=== PATIENT | female | born 1955 | race Caucasian/White ===

== ENCOUNTER 2016-09-17 11:00 | Outpatient (CLI) | payer OTHER ==
--- NOTE | 2016-09-18 17:03 | Mammography Report ---
DIGITAL SCREENING MAMMOGRAM: 09/17/2016 CLINICAL INDICATION: A 61-year-old, for screening. COMPARISON: 06/2015, 06/2014, 06/2013, 02/2011, 11/2009, 01/2007. TECHNIQUE: Routine CC and MLO projections were obtained of the breasts. Bilateral laterally exaggera natalee craniocaudal views. FINDINGS: Parenchymal tissue within both breasts is heterogeneously dense, which may lower the sensi tivity of mammography; however, there are no dominant masses, suspicious microcalcifications, or seco ndary signs of malignancy. In comparison to the previous studies, there are no significant changes. ASSESSMENT: NO MAMMOGRAPHIC EVIDENCE OF MALIGNANCY. NO SIGNIFICANT INTERVAL CHANGES. RECOMMENDATION: Screening mammography is recommended annually. BIRADS category 1 - negative. STANDARD QUALIFYING STATEMENTS 1. This examination was reviewed with the aid of Computed-Aided Detection (CAD). 2. A negative or benign imaging report should not delay biopsy if clinically suspicious findings are present. Consider surgical consultation if warranted. More than 5% of cancers are not identified by i maging. 3. Dense breasts may obscure an underlying neoplasm. JOB #: [id number] EXT JOB #:[id number]
== END 2016-09-17 11:01 | disposition home or self-care (01) ==
LOC: DI.S 11:00
PROVIDERS: ATTEND Nurse Practitioner Family
DX: Z12.31 Encounter for screening mammogram for malignant neoplasm of breast (principal)
CPT/HCPCS: 77067

== ENCOUNTER 2017-11-24 16:21 | Outpatient (CLI) | payer OTHER ==
--- NOTE | 2017-12-08 11:33 | Mammography Report ---
Procedure Date: 11/24/2017 Accession Number: [id number] / [id number] Procedure: MGN - Screening Mammo Dig Bilat CPT Code: FULL RESULT: EXAM: Screening Mammo Dig Bilat DATE: 11/24/2017 4:38 PM CLINICAL HISTORY: 62 year-old nulliparous female with family history of breast cancer in the mother at age 75. TECHNIQUE: Bilateral CC and MLO views were obtained. COMPARISON: 09/17/2016, 06/13/2015, 06/27/2014, 06/29/2013. FINDINGS: The breasts demonstrate heterogeneously dense fibroglandular parenchyma bilaterally. No suspicious masses, clustered microcalcifications, or regions of architectural distortion are identified. IMPRESSION: Negative examination RECOMMENDATION: Routine annual screening unless otherwise clinically indicated. BIRADS CATEGORY 1: Negative STANDARD QUALIFYING STATEMENTS: 1. This examination was reviewed with the aid of Computer-Aided Detection (CAD). 2. A negative or benign imaging report should not delay biopsy if clinically suspicious findings are present. Consider surgical consultation if warrented. More than 5% of cancers are not identified by imaging. 3. Dense breasts may obscure an underlying neoplasm.
== END 2017-11-24 16:22 | disposition home or self-care (01) ==
LOC: DI.N 16:21
PROVIDERS: ATTEND Nurse Practitioner Family
DX: Z12.31 Encounter for screening mammogram for malignant neoplasm of breast (principal); Z80.3 Family history of malignant neoplasm of breast
CPT/HCPCS: 77067

== ENCOUNTER 2018-12-23 09:02 | Outpatient (CLI) | payer OTHER ==
[2018-12-23 16:59] LABS: BASOPHILS % (AUTO) 0.7 %; EOSINOPHILS # (AUTO) 0.1 10^3/uL (0.0-0.7); HGB - HEMOGLOBIN 13.9 g/dL (12.0-16.0); LYMPHOCYTES % (AUTO) 36.2 %; MEAN CORPUSCULAR HGB CONC 31.5 g/dL (32.0-36.0); MEAN CORPUSCULAR VOLUME 91.9 fL (81.0-99.0); MEAN PLATELET VOLUME 10.8 fL (7.9-10.8); MONOCYTES # (AUTO) 0.4 10^3/uL (0.0-1.0); MONOCYTES % (AUTO) 8.1 %; NEUTROPHILS # (AUTO) 2.9 10^3/uL (1.5-6.6); NEUTROPHILS % (AUTO) 52.8 %; PLT - PLATELET COUNT 226 10^3/uL (130-450); RED CELL DISTRIBUTION WIDTH 12.4 % (12.0-15.0); WHITE BLOOD COUNT 5.4 x10^3/uL (4.8-10.8)
[2018-12-23 17:23] LABS: ALBUMIN 4.2 g/dL (3.2-5.5); ALBUMIN/GLOBULIN RATIO 1.4 (1.0-2.2); ALKALINE PHOSPHATASE 62 IU/L (42-121); ALT ALANINE AMINOTRANSFERASE 23 IU/L (10-60); AST ASPARTATE AMINOTRANSFERASE 26 IU/L (10-42); BILIRUBIN,TOTAL 0.6 mg/dL (0.2-1.0); BUN - BLOOD UREA NITROGEN 13 mg/dL (6-20); CALCIUM 9.4 mg/dL (8.5-10.3); CARBON DIOXIDE - CO2 27 mmol/L (21-32); CHLORIDE 105 mmol/L (101-111); CHOL/HDL RATIO 4.1 (<4.4); CHOLESTEROL 331 mg/dL; CREATININE 0.6 mg/dL (0.4-1.0); GFR - MDRD 101 (>89); GLUCOSE 86 mg/dL (70-100); HDL CHOLESTEROL 80 mg/dL; LDL CHOLESTEROL,CALCULATED 229 mg/dL; LDL CHOLESTEROL,DIRECT 240 mg/dL; LDL/HDL RATIO 2.9 (<4.4); SODIUM 140 mmol/L (135-145); T4 (THYROXINE) 7.77 ug/dL (6.09-12.23); TOTAL PROTEIN 7.2 g/dL (6.7-8.2); VLDL CHOLESTEROL 22 mg/dL
[2018-12-23 17:26] LABS: THYROID STIMULATING HORMONE 1.22 uIU/mL (0.34-5.60)
== END 2018-12-23 09:03 | disposition home or self-care (01) ==
LOC: LAB.S 09:02
PROVIDERS: ATTEND Nurse Practitioner Family
DX: Z00.01 Encounter for general adult medical examination with abnormal findings (principal); F32.9 Major depressive disorder, single episode, unspecified; E55.9 Vitamin D deficiency, unspecified; Z79.890 Hormone replacement therapy
CPT/HCPCS: 36415; 80053; 80061; 82306; 83721; 84436; 84443; 84481; 85025; 85384

== ENCOUNTER 2019-01-06 16:35 | Outpatient (CLI) | payer OTHER ==
--- NOTE | 2019-01-09 16:18 | Ultrasound Report ---
Reason: HYPERLIPIDEMIA, UNSPECIFIED Procedure Date: 01/06/2019 Accession Number: [id number] / [id number] Procedure: US - Carotid Doppler Complete CPT Code: FULL RESULT: EXAM: BILATERAL CAROTID AND VERTEBRAL ARTERY DUPLEX DOPPLER ULTRASOUND. EXAM DATE: 01/06/2019 05:37 PM. CLINICAL HISTORY: Hyperlipidemia, unspecified. COMPARISON: None. TECHNIQUE: Grayscale imaging, color Doppler, and duplex spectral Doppler were used to evaluate the carotid and vertebral arteries bilaterally. Static images were obtained. FINDINGS: Mild nonocclusive atherosclerotic plaque is identified in the left distal common and proximal internal carotid artery. No arthroscopic plaque in right system. Normal antegrade flow is present in bilateral vertebral arteries. VELOCITIES (cm/sec): Right CCA mid: PSV 79 cm/sec CCA dist: PSV 80 cm/sec ICA prox: PSV 78 cm/sec, EDV 13 cm/sec ICA mid: PSV 84 cm/sec, EDV 19 cm/sec ICA dist: PSV 56 cm/sec, EDV 14 cm/sec ECA: PSV 67 cm/sec Vert: PSV 65 cm/sec ICA/CCA: 1.0 Left CCA mid: PSV 97 cm/sec CCA dist: PSV 89 cm/sec ICA prox: PSV 66 cm/sec, EDV 14 cm/sec ICA mid: PSV 63 cm/sec, EDV 17 cm/sec ICA dist: PSV 60 cm/sec, EDV 13 cm/sec ECA: PSV 105 cm/sec Vert: PSV 67 cm/sec ICA/CCA: 0.68 ICA diameter stenosis: Right: <50% by velocity and <70% by NASCET criteria. Left: <50% by velocity and <70% by NASCET criteria. IMPRESSION: 1. Mild nonocclusive atherosclerotic plaque is identified in the left distal common and proximal internal carotid artery. No plaque in right system. 2. In the right carotid artery there are no elevated carotid artery velocities to suggest hemodynamically significant stenosis. 3. In the left carotid artery there are no elevated carotid artery velocities to suggest hemodynamically significant stenosis. 4. Normal antegrade flow is present in bilateral vertebral arteries. General Recommendations: Stenosis =50% ICA - Follow-up ultrasound 6-12 months Stenosis <50% ICA - High Risk Patient with plaque - Follow-up ultrasound 1-2 years Normal Study but High Risk Patient - Follow-up ultrasound 3-5 years Management recommendations and diagnostic criteria are based on current IAC endorsed standards in Carotid Artery Stenosis: Grayscale and Doppler Ultrasound Diagnosis. Validated velocity measurements with angiographic measurements and velocity criteria are extrapolated from diameter data as defined by the Society of Radiologists in Ultrasound Consensus Conference Radiology 2003; 229;340-346. RADIA
== END 2019-01-06 16:36 | disposition home or self-care (01) ==
LOC: DI 16:35
PROVIDERS: ATTEND Nurse Practitioner Family
DX: I65.22 Occlusion and stenosis of left carotid artery (principal)
CPT/HCPCS: 93880

== ENCOUNTER 2020-05-07 12:22 | Outpatient (CLI) | payer MEDICARE, OTHER ==
[2020-05-07 15:39] LABS: BASOPHILS % (AUTO) 0.6 %; EOSINOPHILS # (AUTO) 0.1 10^3/uL (0.0-0.7); EOSINOPHILS % (AUTO) 1.3 %; LYMPHOCYTES # (AUTO) 2.1 10^3/uL (1.5-3.5); LYMPHOCYTES % (AUTO) 37.8 %; MEAN CORPUSCULAR HEMOGLOBIN 29.6 pg (27.0-31.0); MEAN CORPUSCULAR HGB CONC 32.7 g/dL (32.0-36.0); MEAN CORPUSCULAR VOLUME 90.4 fL (81.0-99.0); MEAN PLATELET VOLUME 9.8 fL (7.9-10.8); MONOCYTES # (AUTO) 0.4 10^3/uL (0.0-1.0); MONOCYTES % (AUTO) 7.5 %; NEUTROPHILS # (AUTO) 2.9 10^3/uL (1.5-6.6); NEUTROPHILS % (AUTO) 52.6 %; PLT - PLATELET COUNT 254 10^3/uL (130-450); RED BLOOD COUNT 4.39 10^6/uL (4.20-5.40); RED CELL DISTRIBUTION WIDTH 12.2 % (12.0-15.0); WHITE BLOOD COUNT 5.5 x10^3/uL (4.8-10.8)
[2020-05-07 15:49] LABS: BILIRUBIN,URINE NEGATIVE (NEGATIVE); GLUCOSE, URINE (UA) NEGATIVE (NEGATIVE); KETONES,URINE (UA) NEGATIVE (NEGATIVE); LEUKOCYTE ESTERASE, URINE NEGATIVE (NEGATIVE); NITRITE,URINE NEGATIVE (NEGATIVE); OCCULT BLOOD,URINE TRACE-INTA (NEGATIVE); PH,URINE 6.5 PH (5.0-7.5); PROTEIN,URINE NEGATIVE (NEGATIVE); UROBILINOGEN,URINE 0.2 (NORMAL) E.U./dL (NORMAL)
[2020-05-07 16:07] LABS: CLARITY,URINE CLEAR (CLEAR)
[2020-05-07 16:16] LABS: ALBUMIN 4.1 g/dL (3.2-5.5); ALBUMIN/GLOBULIN RATIO 1.4 (1.0-2.2); BILIRUBIN,TOTAL 0.8 mg/dL (0.2-1.0); CALCIUM 9.4 mg/dL (8.5-10.3); CREATININE 0.6 mg/dL (0.4-1.0)
== END 2020-05-07 12:23 | disposition home or self-care (01) ==
LOC: LAB.S 12:22
PROVIDERS: ATTEND Nurse Practitioner Family
DX: R31.9 Hematuria, unspecified (principal); E55.9 Vitamin D deficiency, unspecified; Z79.899 Other long term (current) drug therapy
CPT/HCPCS: 36415; 80053; 81001; 81003; 82306; 85025; 87086

== ENCOUNTER 2020-08-06 07:56 | Day surgery (SDC) | payer MEDICARE, OTHER ==
[2020-08-06] MEDS ORDERED: LACTATED RINGERS 1,000 ML IV ONE (08:58)
[2020-08-06] MEDS ORDERED: MIDAZOLAM 2 MG/2 ML VIAL ONE ×2 (09:20→09:22)
[2020-08-06] MEDS ORDERED: fentaNYL 250 MCG/5 ML VIAL ONE (09:20)
[2020-08-06] MEDS ORDERED: LACTATED RINGERS 500 ML IV ONE (10:00)
[2020-08-06 10:34] VITALS: BP 127/77
== END 2020-08-06 07:57 | disposition home or self-care (01) ==
LOC: SDS 07:56
PROVIDERS: ATTEND Internal Medicine Gastroenterology
PROC: 0DBN8ZZ Excision of Sigmoid Colon, Via Natural or Artificial Opening Endoscopic (ICD-10-PCS; 2020-08-06)
PROC: 0DBN8ZZ Excision of Sigmoid Colon, Via Natural or Artificial Opening Endoscopic (ICD-10-PCS; principal; 2020-08-06 09:00)
DX: Z12.11 Encounter for screening for malignant neoplasm of colon (principal); K63.5 Polyp of colon; K57.30 Diverticulosis of large intestine without perforation or abscess without bleeding; I10 Essential (primary) hypertension; Z87.891 Personal history of nicotine dependence
CPT/HCPCS: 45380; 45385; J3010; J7120

== ENCOUNTER 2020-08-12 13:27 | Outpatient (CLI) | payer MEDICARE, OTHER ==
--- NOTE | 2020-08-14 12:25 | Mammography Report ---
BILATERAL DIGITAL SCREENING MAMMOGRAM 3D/2D WITH EXAGGERATED CC: 08/12/2020 CLINICAL: Family history of breast cancer. Family history of breast cancer. Comparison is made to exams dated: 11/24/2017 mammogram, 09/17/2016 mammogram, and 06/27/2014 mammogram - [facility]. There are scattered fibroglandular elements in both breasts. No significant masses, calcifications, or other findings are seen in either breast. There has been no significant interval change. IMPRESSION: NEGATIVE There is no mammographic evidence of malignancy. A 1 year screening mammogram is recommended. This exam was interpreted at Station ID: [id number]. NOTE: For mammograms, a report in lay terms will be sent to the patient. Approximately 15% of breast malignancies will not be visualized mammographically. In the management of a palpable breast mass, a negative mammogram must not discourage biopsy of a clinically suspicious lesion. Electronically Signed By: Pb Garcia M.D. ar/penrad:08/13/2020 09:41:35 ACR BI-RADS Category 1: Negative 3341F PARENCHYMAL PATTERN: (A) - The breast(s) demonstrate(s) scattered fibroglandular densities. BI-RADS CATEGORY: (1) - 1 RECOMMENDATION: (ANNUAL) - Recommend routine annual screening mammography. [id number] 1 year screening LATERALITY: (B)
== END 2020-08-12 13:28 | disposition home or self-care (01) ==
LOC: DI.S 13:27
PROVIDERS: ATTEND Nurse Practitioner Family
DX: Z12.31 Encounter for screening mammogram for malignant neoplasm of breast (principal); Z80.3 Family history of malignant neoplasm of breast

== ENCOUNTER 2020-11-23 08:00 | Outpatient (CLI) | payer MEDICARE, OTHER ==
[2020-11-23 15:10] LABS: ALBUMIN 4.4 g/dL (3.2-5.5); ALBUMIN/GLOBULIN RATIO 1.7 (1.0-2.2); ALKALINE PHOSPHATASE 60 IU/L (42-121); ALT ALANINE AMINOTRANSFERASE 32 IU/L (10-60); AST ASPARTATE AMINOTRANSFERASE 32 IU/L (10-42); BUN - BLOOD UREA NITROGEN 12 mg/dL (6-20); CALCIUM 9.5 mg/dL (8.5-10.3); CARBON DIOXIDE - CO2 25 mmol/L (21-32); CHLORIDE 103 mmol/L (101-111); CHOL/HDL RATIO 2.1 (<4.4); CHOLESTEROL 206 mg/dL; CREATININE 0.7 mg/dL (0.4-1.0); GFR - MDRD 84 (>89); GLUCOSE 98 mg/dL (70-100); HDL CHOLESTEROL 97 mg/dL; LDL CHOLESTEROL,CALCULATED 97 mg/dL; POTASSIUM 3.8 mmol/L (3.5-5.0); SODIUM 139 mmol/L (135-145); TRIGLYCERIDES 59 mg/dL; VLDL CHOLESTEROL 12 mg/dL
== END 2020-11-23 08:01 | disposition home or self-care (01) ==
LOC: LAB.S 08:00
PROVIDERS: ATTEND Nurse Practitioner Family
DX: E78.5 Hyperlipidemia, unspecified (principal)
CPT/HCPCS: 36415; 80053; 80061; 83721

== ENCOUNTER 2021-06-18 16:45 | Emergency (ER) | payer MEDICARE, OTHER ==
[2021-06-18 17:09] VITALS: BP 160/52
[2021-06-18] MEDS ORDERED: TETANUS/DIPHTHERIA/PERTUSSIS 0.5 ML SYRINGE IM ONE (17:40)
--- NOTE | 2021-06-18 17:41 | ED Physician Documentation ---
PD HPI HEAD INJURY - Stated complaint Stated Complaint: GLF, ARM INJURY - Chief complaint Chief Complaint: Trauma Hd/Nk - History obtained from History obtained from: Patient - Additional information Additional information: 66-year-old woman was knocked over by a dog at about 2 PM and fell onto gravel. She has a scrape on her right arm and hit the back of her head. She was seen at urgent care where during wound care some blood from her got into one of the healthcare worker's eyes and they requested source testing which the patient is agreeable on. There was no loss of consciousness. Denies headache. Review of Systems Constitutional: reports: Reviewed and negative Eyes: reports: Reviewed and negative Ears: reports: Reviewed and negative Nose: reports: Reviewed and negative PD PAST MEDICAL HISTORY - Past Medical History Cardiovascular: Hypertension, High cholesterol Respiratory: None Endocrine/Autoimmune: None GI: Hemorrhoids : None HEENT: Chronic vision loss Psych: Depression Musculoskeletal: None Derm: Psoriasis - Past Surgical History Ortho: Other /[employer]STRUCTOR: Dilation and currettage, Other - Present Medications Home Medications: Ambulatory Orders Medication Instructions Recorded Confirmed Escitalopram [Lexapro] 10 mg PO DAILY 08/03/20 08/06/20 amLODIPine [Norvasc] 5 mg PO DAILY 08/03/20 08/06/20 lisinopriL [Lisinopril] 30 mg PO DAILY 08/03/20 08/06/20 - Allergies Allergies/Adverse Reactions: Allergies Allergy/AdvReac Type Severity Reaction Status Date / Time No Known Drug Allergies Allergy Verified 06/18/21 17:09 PD ED PE NORMAL - Vitals Vital signs reviewed: Yes - General General: Alert and oriented X 3, No acute distress - HEENT HEENT: PERRL, EOMI - Neck Neck: Supple, no meningeal sign, No bony TTP - Extremities Extremities: Other (There is a gouge over the right proximal ulna without underl saurav tenderness or limited range of motion. Full range of motion at the elbow.) - Neuro Neuro: Alert and oriented X 3, Normal speech Results - Vitals Vitals: Vital Signs - 24 hr 06/18/21 17:03 Temperature 36.6 C Heart Rate 60 Respiratory 16 Rate Blood Pressure 160/52 H O2 Saturation 99 Oxygen O2 Source Room air - Labs Labs: Laboratory Tests 06/18/21 18:00 HIV 1&2 Antibody Rapid NEGATIVE PD MEDICAL DECISION MAKING - ED course ED course: Patient agreeable to source testing for viral blood-borne illnesses which is done, and employee health notified of the drop by patient protected email. CT imaging of the head was negative. We discussed wound care for the elbow. Departure - Departure Disposition: 01 Home, Self Care Clinical Impression: Injury of head and neck Qualifiers: Encounter type: initial encounter Qualified Code(s): S09.90XA - Unspecified injury of head, initial encounter Elbow abrasion Qualifiers: Encounter type: initial encounter Laterality: right Qualified Code(s): S50.311A - Abrasion of right elbow, initial encounter Condition: Good Record reviewed to determine appropriate education?: Yes Instructions: ED Head Injury Closed Comments: For the elbow, you can wash briefly with soap and water and then keep it covered with a dressing and bacitracin ointment which is available [id number]. You will likely have to do this for a week or 2 until it is completely healed. Your head CT is without significant injuries, return for new or worsening symptoms. Discharge Date/Time: 06/18/21 18:14
--- NOTE | 2021-06-18 17:54 | CT Report ---
PROCEDURE: HEAD WO INDICATIONS: fall, head injury TECHNIQUE: Noncontrast 4.5 mm thick angled axial sections acquired from the foramen magnum to the vertex. For r adiation dose reduction, the following was used: automated exposure control, adjustment of mA and/or kV according to patient size. COMPARISON: None. FINDINGS: Image quality: Excellent. CSF spaces: Basal cisterns are patent. No extra-axial fluid collections. Ventricles are normal in size and shape. Brain: No midline shift. No intracranial masses or hemorrhage. Jones-white matter interface is norm al. Skull and face: Small right parietal scalp hematoma. Calvarium and visualized facial bones are intact , without suspicious lesions. Sinuses: Visualized sinuses and mastoids are clear. IMPRESSION: Small right parietal scalp hematoma. No skull fracture. No acute intracranial hemorrhage or mass effect. Reviewed by: Pb Garcia MD on 06/18/2021 5:53 PM PST Approved by: Pb Garcia MD on 06/18/2021 5:53 PM PST Station ID: [id number]
[2021-06-18 18:36] LABS: HIV RAPID SCREEN NEGATIVE (NEGATIVE)
[2021-06-19 10:21] LABS: HEPATITIS B SURFACE ANTIGEN NON-REACTIVE (NON-REACTIVE); HEPATITIS C ANTIBODY NON-REACTIVE (NON-REACTIVE)
[2021-06-19 13:32] LABS: HIV AG/AB 4TH GEN NON-REACTIVE (NON-REACTIVE)
== END 2021-06-18 18:14 | disposition home or self-care (01) ==
LOC: ED 16:45
DX: S09.90XA Unspecified injury of head, initial encounter (principal); S50.311A Abrasion of right elbow, initial encounter; W03.XXXA Other fall on same level due to collision with another person, initial encounter; I10 Essential (primary) hypertension; Z13.0 Encounter for screening for diseases of the blood and blood-forming organs and certain disorders involving the immune mechanism; Z23 Encounter for immunization; Z71.85 Encounter for immunization safety counseling
CPT/HCPCS: 36415; 70450; 86803; 87340; 90471; 90715; 99282; 99284; G0475; 80074; 86703; 87389

== ENCOUNTER 2021-10-01 08:07 | Outpatient (CLI) | payer MEDICARE, OTHER ==
[2021-10-01 14:13] LABS: BASOPHILS % (AUTO) 0.6 %; EOSINOPHILS # (AUTO) 0.1 10^3/uL (0.0-0.7); EOSINOPHILS % (AUTO) 2.1 %; HCT - HEMATOCRIT 42.1 % (37.0-47.0); HGB - HEMOGLOBIN 13.3 g/dL (12.0-16.0); LYMPHOCYTES # (AUTO) 1.7 10^3/uL (1.5-3.5); LYMPHOCYTES % (AUTO) 33.1 %; MEAN CORPUSCULAR HEMOGLOBIN 29.8 pg (27.0-31.0); MEAN CORPUSCULAR HGB CONC 31.6 g/dL (32.0-36.0); MEAN CORPUSCULAR VOLUME 94.2 fL (81.0-99.0); MEAN PLATELET VOLUME 10.4 fL (7.9-10.8); MONOCYTES # (AUTO) 0.5 10^3/uL (0.0-1.0); MONOCYTES % (AUTO) 9.2 %; NEUTROPHILS # (AUTO) 2.8 10^3/uL (1.5-6.6); NEUTROPHILS % (AUTO) 54.8 %; PLT - PLATELET COUNT 242 10^3/uL (130-450); RED BLOOD COUNT 4.47 10^6/uL (4.20-5.40); RED CELL DISTRIBUTION WIDTH 12.5 % (12.0-15.0); WHITE BLOOD COUNT 5.1 x10^3/uL (4.8-10.8)
[2021-10-01 14:47] LABS: ALBUMIN 4.3 g/dL (3.2-5.5); ALBUMIN/GLOBULIN RATIO 1.5 (1.0-2.2); ALKALINE PHOSPHATASE 57 IU/L (42-121); ALT ALANINE AMINOTRANSFERASE 29 IU/L (10-60); AST ASPARTATE AMINOTRANSFERASE 29 IU/L (10-42); BILIRUBIN,TOTAL 0.8 mg/dL (0.2-1.0); BUN - BLOOD UREA NITROGEN 19 mg/dL (6-20); CALCIUM 9.4 mg/dL (8.5-10.3); CARBON DIOXIDE - CO2 28 mmol/L (21-32); CHLORIDE 103 mmol/L (101-111); CHOL/HDL RATIO 1.8 (<4.4); CHOLESTEROL 187 mg/dL; CREATININE 0.7 mg/dL (0.4-1.0); GFR - MDRD 83 (>89); GLUCOSE 93 mg/dL (70-100); HDL CHOLESTEROL 105 mg/dL; POTASSIUM 3.8 mmol/L (3.5-5.0); SODIUM 139 mmol/L (135-145); TOTAL PROTEIN 7.2 g/dL (6.7-8.2); TRIGLYCERIDES 38 mg/dL
[2021-10-01 14:49] LABS: THYROID STIMULATING HORMONE 1.03 uIU/mL (0.34-5.60)
== END 2021-10-01 08:08 | disposition home or self-care (01) ==
LOC: LAB.S 08:07
PROVIDERS: ATTEND Nurse Practitioner Family
DX: E78.5 Hyperlipidemia, unspecified (principal); I10 Essential (primary) hypertension
CPT/HCPCS: 36415; 80053; 80061; 83721; 84443; 85025

== ENCOUNTER 2022-04-11 09:33 | Outpatient (CLI) | payer MEDICARE, OTHER | END 2022-04-11 09:34 | disposition home or self-care (01) | LOC: LAB.S 09:33 | PROVIDERS: ATTEND Physical Medicine & Rehabilitation Hospice and Palliative Medicine | DX: F41.9 Anxiety disorder, unspecified (principal); R09.89 Other specified symptoms and signs involving the circulatory and respiratory systems; F32.A Depression, unspecified; F40.01 Agoraphobia with panic disorder; G47.00 Insomnia, unspecified; R20.8 Other disturbances of skin sensation; R63.4 Abnormal weight loss; R23.2 Flushing | CPT/HCPCS: 36415; 81599; 82306; 82533; 82728; 82747; 83090; 83498; 83540; 83735; 84207; 84466; 85014; 85025; 85651; 86140; 86376; 86800 ==

== ENCOUNTER 2022-06-09 12:38 | Outpatient (CLI) | payer MEDICARE, OTHER ==
--- NOTE | 2022-06-09 18:02 | Ultrasound Report ---
PROCEDURE: Head or Neck Soft Tissue INDICATIONS: THYROID NODULE TECHNIQUE: Real-time scanning was performed of the thyroid gland, with image documentation. COMPARISON: None FINDINGS: Right: Thyroid lobe measures 5.1 x 1.6 x 1.7 cm, and contains multiple nodules Left: Thyroid lobe measures Size cm, and contains multiple nodules Isthmus: 2 mm thick. Only the 3 largest nodules are measured. The other nodules are all tiny. Nodule number: 1 Location: Lateral right middle pole Size: 0.9 x 0.5 x 0.9 cm. Composition: Solid Echogenicity: Markedly hypoechoic Shape: Wider than tall. Margins: Smooth Echogenic foci: Punctate Total points: 7 ACR TI-RADS category: Highly suspicious Nodule number: 2 Location: Right middle pole/lower pole Size: 0.9 x 0.6 x 0.8 cm. Composition: Cystic Echogenicity: Anechoic Shape: wider than tall. Margins: Smooth Echogenic foci: Peripheral calcifications Total points: 1 ACR TI-RADS category: Benign Nodule number: 3 Location: Lateral left upper pole Size: 0.4 x 0.6 x 0.4 cm. Composition: Solid Echogenicity: Hypoechoic Shape: wider than tall. Margins: Smooth Echogenic foci: Punctate Total points: 7 ACR TI-RADS category: Highly suspicious IMPRESSION: Patient has a multinodular thyroid. The 2 largest lesions. Imaging characteristics which are highly suspicious. However, they are both under 1 cm in diameter, and do not satisfy criteria fo r ultrasound-guided FNA at this time. Based on imaging characteristics and size criteria, recommend f ollow-up ultrasound in 12 months. ACR TI-RADS definitions and recommendations: TI-RADS 1 (benign): 0 points. FNA not needed. TI-RADS 2 (not suspicious): 2 points. FNA not needed. TI-RADS 3 (mildly suspicious): 3 points. "FNA if 2.5 cm or larger, follow up if 1.5 cm or larger (at 1, 3, and 5 years). TI-RADS 4 (moderately suspicious): 4-6 points. "FNA if 1.5 cm or larger, follow up if 1 cm or larger (at 1, 2, 3, and 5 years). TI-RADS 5 (highly suspicious): 7 points or more. "FNA if 1 cm or larger, follow up if 0.5 cm or larger (every year for 5 years). Reviewed by: Henri Rojas MD on 06/09/2022 6:01 PM PST Approved by: Henri Rojas MD on 06/09/2022 6:01 PM [facility] Station ID: [id number]
== END 2022-06-09 12:39 | disposition home or self-care (01) ==
LOC: DI 12:38
PROVIDERS: ATTEND Family Medicine
DX: E04.2 Nontoxic multinodular goiter (principal)

== ENCOUNTER 2022-11-27 10:48 | Outpatient (CLI) | payer MEDICARE, OTHER ==
--- NOTE | 2022-11-28 09:22 | Mammography Report ---
BILATERAL DIGITAL SCREENING MAMMOGRAM 3D/2D: 11/27/2022 CLINICAL: Routine screening. Comparison is made to exams dated: 08/12/2020 mammogram, 11/24/2017 mammogram, and 09/17/2016 mammogram - [facility]. Both breasts are heterogeneously dense, which may obscure small masses (category c / 51-75% glandular tissue). No significant masses, calcifications, or other findings are seen in either breast. There has been no significant interval change. IMPRESSION: NEGATIVE There is no mammographic evidence of malignancy. A 1 year screening mammogram is recommended. Based on the Tyrer Cuzick model (a risk assessment model) the patients lifetime risk is 19.6% and he r 10 year risk is 11.2%. According to the ACR, ACS, and NCCN guidelines, an annual breast MRI exam al mario with mammogram is recommended if the patients lifetime risk is 20% or greater. This exam was interpreted at Station ID: [id number]. NOTE: For mammograms, a report in lay terms will be sent to the patient. Approximately 15% of breast malignancies will not be visualized mammographically. In the management of a palpable breast mass, a negative mammogram must not discourage biopsy of a clinically suspicious lesion. Electronically Signed By: Pb lawrence/wm:11/27/2022 13:46:38 letter sent: No_Letter ACR BI-RADS Category 1: Negative 3341F PARENCHYMAL PATTERN: (D) - The breast(s) demonstrate(s) heterogeneously dense fibroglandular rachel dey. BI-RADS CATEGORY: (1) - 1 Mammogram [id number] 1 year screening LATERALITY: (B)
== END 2022-11-27 10:49 | disposition home or self-care (01) ==
LOC: DI 10:48
PROVIDERS: ATTEND Nurse Practitioner Family
DX: Z12.31 Encounter for screening mammogram for malignant neoplasm of breast (principal)

== ENCOUNTER 2022-11-27 10:48 | Outpatient (CLI) | payer MEDICARE, OTHER ==
--- NOTE | 2022-11-27 17:07 | DEXA Report ---
PROCEDURE: Dexa Spine and/or Hip INDICATIONS: OSTEOPENIA TECHNIQUE: Dual energy x-ray absorptiometry (DXA) was performed on a [employer] System. Regions measur ed are the AP Spine, femoral neck, and if needed forearm. COMPARISON: 06/13/2015 FINDINGS: Lumbar Spine: Bone Mineral Density 1.097 g/cm/cm,T score -0.7. Normal. Previous T score -1.2 Left Femoral Neck: Bone Mineral Density 0.857 g/cm/cm, T score -1.3. Osteopenia. Previous T score -0.6 Left Hip: Bone Mineral Density 0.932 g/cm/cm,T score -0.6. Normal. Previous T score 0.3. (T score greater or equal to -1.0: NORMAL) (T score from -1.1 to -2.4: OSTEOPENIA) (T score less than or equal to -2.5 to: OSTEOPOROSIS) Impression: By WHO criteria, this patient has low bone density (osteopenia). Patients with diagnosis of osteoporosis or osteopenia should have regular bone mineral density assess ment. For those eligible for Medicare, routine testing is allowed once every 2 years. Testing frequ ency can be increased for patients who have rapidly progressing disease or for those who are receivin g medical therapy to restore bone mass. Reviewed by: Pb Irizarry MD on 11/27/2022 5:06 PM PDT Approved by: Pb Irizarry MD on 11/27/2022 5:06 PM PDT Station ID: [id number]
== END 2022-11-27 10:49 | disposition home or self-care (01) ==
LOC: DI 10:48
PROVIDERS: ATTEND Nurse Practitioner Family
DX: M85.88 Other specified disorders of bone density and structure, other site (principal)

== ENCOUNTER 2023-01-07 14:53 | Outpatient (CLI) | payer MEDICARE, OTHER ==
--- NOTE | 2023-01-07 16:13 | Ultrasound Report ---
PROCEDURE: Carotid Doppler Complete INDICATIONS: CAROTID STENOSIS TECHNIQUE: Color and pulse Doppler interrogation was performed of both carotid systems, with image documentation and velocity measurements. COMPARISON: 01/06/2019 FINDINGS: Right side: Brachial blood pressure: 118/60 mm Hg. Common carotid artery peak systolic velocity: 97.6 cm/sec. Internal carotid artery peak systolic velocity: 88.5 cm/sec. Internal carotid artery end diastolic velocity: 21.7 cm/sec. External carotid artery peak systolic velocity: 102.8 cm/sec. ICA/CCA peak systolic ratio: 0.9 . Jones scale imaging description: Moderate atherosclerotic plaque. Percent internal carotid artery stenosis: Less than 50 percent stenosis. Vertebral artery: Flow direction is antegrade. Left side: Brachial blood pressure: 118/65 mm Hg. Common carotid artery peak systolic velocity: 87.5 cm/sec. Internal carotid artery peak systolic velocity: 88.9 cm/sec. Internal carotid artery end diastolic velocity: 23.4 cm/sec. External carotid artery peak systolic velocity: 111.6 cm/sec. ICA/CCA peak systolic ratio: 1.01 . Jones scale imaging description: Mild atherosclerotic plaque. Percent internal carotid artery stenosis: Less than 50 percent stenosis. Vertebral artery: Flow direction is antegrade. IMPRESSION: 1. In the right internal carotid artery, there is less than 50 percent stenosis based on peak systoli c velocity criteria. No significant change from prior. 2. In the left internal carotid artery, there is less than 50 percent stenosis based on peak systolic velocity criteria. No significant change from prior. 3. Antegrade blood flow within the right vertebral artery. 4. Antegrade blood flow within the left vertebral artery. The estimate of stenosis included in the report of the imaging study was calculated using the [facility]-end orsed standards of carotid artery stenosis. Reviewed by: Jorge Verduzco on 01/07/2023 4:11 PM PDT Approved by: Jorge Verduzco on 01/07/2023 4:11 PM PDT Station ID: [id number]
== END 2023-01-07 14:54 | disposition home or self-care (01) ==
LOC: DI 14:53
PROVIDERS: ATTEND Family Medicine
DX: R06.09 Other forms of dyspnea (principal); E78.5 Hyperlipidemia, unspecified; I65.23 Occlusion and stenosis of bilateral carotid arteries
CPT/HCPCS: 93880

== ENCOUNTER 2023-06-11 10:52 | Outpatient (CLI) | payer MEDICARE, OTHER ==
--- NOTE | 2023-06-11 12:13 | Ultrasound Report ---
PROCEDURE: Soft Tissue Head or Neck INDICATIONS: NODULAR GOITER TECHNIQUE: Real-time scanning was performed of the thyroid gland, with image documentation. COMPARISON: None FINDINGS: Right: Thyroid lobe measures 5.5 x 1.4 x 1.7 cm, and is homogeneous in echotexture. Left: Thyroid lobe measures 5.0 x 1.7 x 1.2 cm, and is homogenous in echotexture. Isthmus: 0.3 cm thick. Multiple small thyroid nodules and cysts are present. Nodules measuring less than 1 cm are not report ed in the absence of suspicious features. Nodule number: One Location: Right lateral/mid pole Size: 1.2 x 0.5 x 0.7 cm. Previously 0.9 x 0.5 x 0.9 cm. Composition: Solid (2 points). However, a few small cystic spaces are present, which may indicate sp ongiform. Echogenicity: Hypoechoic (2 points). Shape: wider than tall (0 points). Margins: Smooth (0 points). Echogenic foci: Punctate echogenic foci (3 points). Total points: 7 ACR TI-RADS category: TI-RADS 5: Highly suspicious. IMPRESSION: Interval growth of the highly suspicious thyroid nodule along the right lateral/mid pole. This does m eet size criteria for biopsy. Note: This could simply represent a spongiform nodule with the echogeni c foci representing colloid. This can be evaluated at time of the biopsy. Other subcentimeter thyroid nodules are unchanged, and most likely benign. ACR TI-RADS definitions and recommendations: TI-RADS 1 (benign): 0 points. FNA not needed. TI-RADS 2 (not suspicious): 2 points. FNA not needed. TI-RADS 3 (mildly suspicious): 3 points. "FNA if 2.5 cm or larger, follow up if 1.5 cm or larger (at 1, 3, and 5 years). TI-RADS 4 (moderately suspicious): 4-6 points. "FNA if 1.5 cm or larger, follow up if 1 cm or larger (at 1, 2, 3, and 5 years). TI-RADS 5 (highly suspicious): 7 points or more. "FNA if 1 cm or larger, follow up if 0.5 cm or larger (every year for 5 years). Reviewed by: Jorge Verduzco MD on 06/11/2023 12:12 PM PST Approved by: Jorge Verduzco MD on 06/11/2023 12:12 PM PST Station ID: [id number]
== END 2023-06-11 10:53 | disposition home or self-care (01) ==
LOC: DI 10:52
PROVIDERS: ATTEND Internal Medicine Endocrinology, Diabetes & Metabolism
DX: E04.1 Nontoxic single thyroid nodule (principal)

== ENCOUNTER 2023-11-18 08:55 | Outpatient (CLI) | payer MEDICARE, OTHER ==
--- NOTE | 2023-11-19 10:38 | Mammography Report ---
BILATERAL DIGITAL SCREENING MAMMOGRAM 3D/2D: 11/18/2023 CLINICAL: Routine screening. Family history of breast cancer. Comparison is made to exams dated: 11/27/2022 mammogram, 08/12/2020 mammogram, 11/24/2017 mammogram, an d 09/17/2016 mammogram - [facility]. Both breasts are heterogeneously dense, which may obscure small masses (category c / 51-75% glandular tissue). No significant masses, calcifications, or other findings are seen in either breast. There has been no significant interval change. IMPRESSION: NEGATIVE There is no mammographic evidence of malignancy. A 1 year screening mammogram is recommended. Based on the Tyrer Cuzick model (a risk assessment model) the patient's lifetime risk is 18.6% and he r 10 year risk is 11.3%. According to the ACR, ACS, and NCCN guidelines, an annual breast MRI exam al mario with mammogram is recommended if the patient's lifetime risk is 20% or greater. This exam was interpreted at Station ID: [id number]. NOTE: For mammograms, a report in lay terms will be sent to the patient. Approximately 15% of breast malignancies will not be visualized mammographically. In the management of a palpable breast mass, a negative mammogram must not discourage biopsy of a clinically suspicious lesion. Electronically Signed By: Blanche ca/wm:11/18/2023 12:03:47 letter sent: No_Letter ACR BI-RADS Category 1: Negative 3341F PARENCHYMAL PATTERN: (D) - The breast(s) demonstrate(s) heterogeneously dense fibroglandular rachel dey. BI-RADS CATEGORY: (1) - 1 RECOMMENDATION: (ANNUAL) - Recommend routine annual screening mammography. [id number] 1 year screening LATERALITY: (B)
== END 2023-11-18 08:56 | disposition home or self-care (01) ==
LOC: DI.S 08:55
DX: Z12.31 Encounter for screening mammogram for malignant neoplasm of breast (principal); Z80.3 Family history of malignant neoplasm of breast; R92.333 Mammographic heterogeneous density, bilateral breasts